=== PATIENT | female | born 1955 | race Caucasian/White ===

== ENCOUNTER → 2016-09-27 | Outpatient (CLI) | payer OTHER ==
[~2016-09-27] VITALS: Ht 165.1 cm; Wt 91.6 kg
[~2016-09-27] MED LIST: ALEVE220 MG PO; BYETTA PEN 51 PENIN1 SC; CARVEDILOL6.25 MG PO; CRESTOR10 MG PO; FENOFIBRATE160 MG PO; METFORMIN HCL500 MG PO; VOLTAREN100 GM TP
--- NOTE | ~2016-09-27 | HPC ---
[facility] [place] [address] PAIN MANAGEMENT CONSULTATION Name: NIRAJ BELL Room #: REG [facility].#: [id number] Admission: 09/27/16 Attend Phys: Dario Banks DO Discharge: Date of : 56 Report #: [id number] THIS REPORT FOR: //name// CC: Christian Banks HISTORY OF PRESENT ILLNESS: Dr. Mendoza. HISTORY OF PRESENT ILLNESS: The patient is a 61-year-old female. She had prior been seen back in 2008. She was returned to the pain clinic for evaluation of pain, low back, right hip and leg. She notes pain began in November without antecedent trauma and overuse. Still some weakness with right lower extremity. She has also weakness with right hip flexion, has no paresthesia, no bowel or bladder continence changes, no saddle anesthesia, rates pain anywhere from 5-7 on a 0-10 visual analog scale. Describes continuous, steady, constant, shooting, aching, gnawing pain, it seems to be exacerbated with sitting, walking or even lying on her side. She has tried Voltaren gel with some efficacy. She prior had epidural injections back in 2008 with efficacy. REVIEW OF SYSTEMS: Complete review of systems attached to chart was gone with the patient. She is . She does not smoke or drink alcohol to excess. History of diabetes, treated with metformin and Byetta, generally well controlled with hemoglobin A1c running in the 5.5 range. Hypertension, treated with Coreg. Dyslipidemia for which she takes a "statin". She has had a hysterectomy in 1991, bladder sling surgery in 2011. She has been retired for 3 years. Pain impact score averages about 6.2 for all indices queried. PHYSICAL EXAMINATION: GENERAL: Reveals a 5 feet 5 inches, 190 pounds female, BMI is 33.6 kilograms per meter squared. Blood pressure 150/89, pulse 90s, respirations are 18. NEUROLOGIC: Cranial 2-12 are grossly intact. HEENT: Pupils equal, reactive to light and accommodation. Extraocular muscles are intact. NECK: Cervical range of motion is full. Thyroid is unremarkable. Upper extremity strength is preserved. HEART: Regular rhythmical without murmur. She does have slight rhonchi bilaterally. She know she is getting over what sounds like a viral. EXTREMITIES: Rises from chair using armrest. Has a mildly endomorphic build. Detectable antalgic gait favoring the right leg, though she is able to walk on her toes and heels, right hip flexion strength is diminished about 3-4/5 versus 4/5 to all other objective muscle testing in the lower extremities, grossly positive straight leg raise at 30 degrees on the right. Patellar and Achilles reflexes are preserved. Tender over the SI bilaterally with positive Yoko test on the right. SKIN: Integument is intact. [address] [address] PAIN MANAGEMENT CONSULTATION Name: NIRAJ BELL Room #: REG [facility] Nicole#: [id number] Admission: 09/27/16 Attend Phys: Dario Banks DO Discharge: Date of : 56 Report #: [id number] DIAGNOSTIC STUDIES: There are no recent diagnostic studies available for evaluation at this time. ASSESSMENT: Symptomatic lumbar radiculopathy by clinical exam, component of SI joint dysfunction in a patient with non-insulin dependent diabetes. RECOMMENDATIONS: Epidural injection under fluoroscopy today at L4-L5. We will limit steroid to 60 mg, follow up one week for reevaluation and consideration for a right SI joint injection if indicated clinically. She and her are planning on traveling, will be doing a fair bit of walking, standing. If there is SI component, we may consider treating that next week. PROCEDURE: Lumbar epidural injection under fluoroscopy. PROCEDURE NOTE: After both written and informed consent to include risk of spinal cord damage, increased pain, weakness and dural puncture, the patient was taken to the fluoroscopy suite, placed in the prone position. After sterile prep and drape, a skin wheal with lidocaine was raised. A 22-gauge epidural Tuohy needle was inserted in the midline at L4-L5 with good loss to resistance. Negative aspiration for cerebrospinal fluid or blood was noted. Then 1 mL of Omnipaque under biplanar fluoroscopy showed good spread within the epidural space. This was followed with 80 mg of triamcinolone plus 1 mL of 1.5% preservative-free Xylocaine, 0.5 mL Xylocaine was then injected to flush the needle; it was removed. The patient was monitored for an appropriate period of time and discharged in good and stable condition. <ELECTRONICALLY SIGNED> By: Dario Banks DO 09/28/16 1138 [id number] Dario Banks DO /nt
[2016-09-27 10:54] VITALS: BP 150/89
== END | disposition home or self-care (01) ==
LOC: PAIN 06:57
DX: M54.16 Radiculopathy, lumbar region (principal); M53.3 Sacrococcygeal disorders, not elsewhere classified; E11.9 Type 2 diabetes mellitus without complications; I10 Essential (primary) hypertension; Z90.710 Acquired absence of both cervix and uterus; Z98.890 Other specified postprocedural states

== ENCOUNTER → 2016-10-04 | Outpatient (CLI) | payer OTHER ==
[~2016-10-04] VITALS: Ht 165.1 cm; Wt 86.3 kg
--- NOTE | ~2016-10-04 | OD ---
[facility] [place] [address] DELIVERY NOTE Name: BELLNIRAJ M Room #: REG Donnell Gra[facility].#: [id number] Admission: 10/04/16 Attend Phys: Dario Banks DO Discharge: Date of : 56 Report #: [id number] THIS REPORT FOR: //name// CC: Christian Banks INDICATIONS: The patient is a 61-year-old female. She was seen in consultation 09/27/2016 with diagnosis of symptomatic lumbar radiculopathy with a component of right SI joint dysfunction. She was given a lumbar epidural injection at initial visit, scheduled for a followup in 1 week for consideration for right SI joint injection. She returns to the pain clinic today noting that the epidural injection afforded about 80% relief, still has pain in the right SI with a positive Yoko test on this side. ASSESSMENT: Symptomatic sacroiliac joint dysfunction, lumbar radiculopathy by history. 80% overall improvement following the epidural injection, but significant ongoing right sacroiliac mediated pain. RECOMMENDATIONS: 1. Right SI joint injection under fluoroscopy today. 2. Continue core therapy exercise. 3. Continue naproxen sodium OTC p.r.n. 4. Follow up in 3 weeks for reevaluation. We will seek authorization for repeat epidural injection for radicular symptoms if still present. She does have a mildly positive straight leg raise on the right. No radicular symptoms or again about 80% overall improved. PROCEDURE: Right SI joint injection under fluoroscopy. DESCRIPTION OF PROCEDURE: After written informed consent was obtained, the patient was taken to the fluoroscopy suite and placed in prone position. After sterile prep and drape, a skin wheal was raised. A 22-gauge stylet needle was placed in the inferior aspect of the right SI joint. Negative aspiration was accomplished. Then, 20 mg of triamcinolone plus 3 mL of 0.5% preservative-free bupivacaine was injected into and around the joint. Needle was removed. Area was cleansed, Band-Aids applied. The patient monitored for an appropriate period of time, discharged in good and stable condition, noting about 50% improvement of baseline pain. By: [id number] Dario Banks DO /nt
[2016-10-04 11:03] VITALS: BP 125/75
== END | disposition home or self-care (01) ==
LOC: PAIN 06:59
DX: M53.3 Sacrococcygeal disorders, not elsewhere classified (principal); M54.16 Radiculopathy, lumbar region

== ENCOUNTER → 2016-10-25 | Outpatient (CLI) | payer OTHER ==
[~2016-10-25] VITALS: Ht 165.1 cm; Wt 87.5 kg
--- NOTE | ~2016-10-25 | HPC ---
[facility] [place] [address] PAIN MANAGEMENT CONSULTATION Name: BELLNIRAJ M Room #: REG [facility].#: [id number] Admission: 10/25/16 Attend Phys: Dario Banks DO Discharge: Date of : 56 Report #: [id number] THIS REPORT FOR: //name// CC: Abdiaziz Banks DATE OF SERVICE: 10/25/2016 The patient is a 61-year-old female, prior seen in the pain clinic 10/04/2016. She had 80% relief with an initial lumbar epidural injection. She had some right-sided pain. We did a right SI joint injection at last visit. Returns to pain clinic today noting that the SI joint injection afforded good relief. She has done well from a functional standpoint. She and her traveled to [place] on a cruise through the [facility]. On returning, she notes pain is becoming problematic again low back, right leg, primarily below the knee. PHYSICAL EXAMINATION: Shows cranial nerves 2-12 are grossly intact. Speech is fluent 33-year-old female with BMI of 32.1 kilograms per meter squared. Vital signs stable as noted in the EMR. Rises from chair using armrest. Modestly antalgic gait. She does have demonstrable loss of strength in the right leg to hip flexion, lower extremity extension and plantar flexion somewhat belying her tandem gait. Positive straight leg raise on the right. ASSESSMENT: Symptomatic lumbar radiculopathy. RECOMMENDATIONS: 1. Repeat epidural injection under fluoroscopy today at L4-L5. 2. Follow up in 3 weeks for reevaluation. If this does not afford adequate relief, we will need an updated MRI and we will refer to surgery. ASSESSMENT: Symptomatic lumbar radiculopathy. PROCEDURE: Lumbar epidural injection under fluoroscopy. PROCEDURE NOTE: After both written and informed consent to include risk of spinal cord damage, increased pain, weakness and dural puncture, the patient was taken to the fluoroscopy suite, placed in the prone position. After sterile prep and drape, a skin wheal with lidocaine was raised. A 22-gauge epidural Tuohy needle was inserted in the midline at L4-L5 with good loss to resistance. Negative aspiration for cerebrospinal fluid or blood was noted. Then 1 mL of Omnipaque under biplanar fluoroscopy showed good spread within the epidural space. This was followed with 80 mg of triamcinolone plus 1 mL of 1.5% preservative-free Xylocaine, 0.5 mL Xylocaine was then injected to flush the [facility] [address] [place] [address] PAIN MANAGEMENT CONSULTATION Name: NIRAJ BELL Room #: REG [facility]#: [id number] Admission: 10/25/16 Attend Phys: Dario Banks DO Discharge: Date of : 57 Report #: [id number] needle; it was removed. The patient was monitored for an appropriate period of time and discharged in good and stable condition. <ELECTRONICALLY SIGNED> By: Dario Banks DO 10/26/16 0925 1218 11 Dario Banks DO /nt
[2016-10-25 10:09] VITALS: BP 141/62
== END | disposition home or self-care (01) ==
LOC: PAIN 07:55
DX: M54.16 Radiculopathy, lumbar region (principal); Z98.890 Other specified postprocedural states

== ENCOUNTER → 2016-11-23 | Outpatient (CLI) | payer OTHER ==
[~2016-11-23] VITALS: Ht 165.1 cm; Wt 85.6 kg
[~2016-11-23] MED LIST changes: +MOBIC15 MG PO; +VICTOZA0.6 MG/0.1 SUBQ
--- NOTE | ~2016-11-23 | HPC ---
[facility] [place] [address] PAIN MANAGEMENT CONSULTATION Name: NIRAJ BELL Room #: REG [facility]#: [id number] Admission: 11/23/16 Attend Phys: Marilyn Jason MD Discharge: Date of : 56 Report #: [id number] THIS REPORT FOR: //name// CC: Marilyn Jimenez DATE OF SERVICE: 11/23/2016 FOLLOWUP COMPLAINT: Pain in the low back and down into the leg/buttocks. FOLLOWUP HISTORY: The patient is a 61-year-old female who has been seen in the pain clinic because of lumbar radiculopathy. She has undergone epidural steroid injections for pain radiating down into the L4-L5 distribution. She noticed that that has improved. At this juncture, she is having pain and discomfort, which radiates down into the low back area involving the right buttocks. She has noted over the last 3-4 days that the pain has increased. This happened after the patient slipped and fell on to her right hip. She has had difficulty ambulating because of this. The pain is quite problematic and makes sleeping and rest difficult. She continues to take nonsteroidal anti-inflammatory, naproxen. She is not sure if this is providing a significant amount benefit at this juncture. PHYSICAL EXAMINATION: Blood pressure 125/75, pulse 82, respiratory rate 16, room air saturation 97. Height 5 feet 5 inches, weight 86 kg, BMI is 31. The patient moves very slowly from chair to a standing position. She walks with a slight hop involving her right leg and in a very antalgic gait. She complains of pain and discomfort radiating down the lower portion of her back and into the buttocks area. This is different than the pain she experienced with the lumbar radiculopathy. She feels that she is unable to engage in activities of daily living. She is unable to walk or do routine daily activities. Palpation in the right posterior superior iliac spine area near the latissimus dorsi insertion on the low back area reproduces pain and discomfort, which she has been experiencing. IMPRESSION: 1. Myofascial pain, status post fall on to the right hip about 3-4 days ago. 2. Right sacroiliac joint injection under fluoroscopy in the past. 3. Improvement in lumbar radicular pain. RECOMMENDATIONS: We discussed treatment options with the patient. Risks and benefits of a trigger point injection was discussed. Possible complications which could include infection, increased muscle soreness, improvement in pain, worsening of pain were explained and the patient elects to proceed. The patient will try Mobic 15 mg 1 p.o. q. day and note its efficacy and hold use of [address] [address] PAIN MANAGEMENT CONSULTATION Name: NIRAJ BELL [id number] Admission: 11/23/16 Attend Phys: Marilyn Jason MD Discharge: Date of : 56 Report #: [id number] at this juncture. PROCEDURE NOTE: The patient was placed in the sitting position. Her back was sterilely prepped with a alcohol/chlorhexidine solution. A 25-gauge needle was then advanced into the area of discomfort. A total of 40 mg triamcinolone and 10 mL of 0.25% bupivacaine was injected. The patient's pain decreased to 0 at the time of discharge. She will follow up in the future as needed with Dr. Banks. We would like to thank you for letting us participate in her care. We hope she continues to improve. By: [id number] Marilyn Jason MD /nt
[2016-11-23 10:00] VITALS: BP 134/80
== END ==
LOC: PAIN 09:01
DX: M79.1 Myalgia (principal); M54.16 Radiculopathy, lumbar region; I10 Essential (primary) hypertension; E11.9 Type 2 diabetes mellitus without complications

== ENCOUNTER → 2017-01-21 | Outpatient (CLI) | payer OTHER ==
[~2017-01-21] VITALS: Ht 165.1 cm; Wt 84.8 kg
--- NOTE | ~2017-01-21 | HPC ---
[facility] [place] [address] PAIN MANAGEMENT CONSULTATION Name: BELLNIRAJ M Room #: REG [facility].#: [id number] Admission: 01/21/17 Attend Phys: Dairo Banks DO Discharge: Date of : 56 Report #: [id number] THIS REPORT FOR: //name// CC: Abdiaziz Banks HISTORY OF PRESENT ILLNESS: The patient is a 61-year-old female, prior seen in the pain clinic for symptomatic lumbar radiculopathy, she has classic right L4 radicular pain. She had an initial injection lumbar TARYN on 09/27/2016 with 80% relief from initial injection, initially 100% for several days, but pain gradually begun to recur. She was seen in followup on 10/04/2016 with some right SI mediated pain predominating. Proceeded with a second LESI on at L4-L5 on 10/26/2015. The patient returned on 11/23/2016 noting 50% relief following that injection. She was doing well until she slipped and fell 3 days prior to presentation. She returns to the pain clinic today noting pain remains problematic, right low back radiating down to the knee in an L4 pattern. Unfortunately, there are no diagnostic studies available, I ordered an MRI of the lumbar spine at last visit, but her insurance declined this. She has ongoing lumbar radicular pain, right L4 pattern, low back, right buttock, lateral thigh into the anterior foot. Pain is exacerbated with standing, walking and bending. PHYSICAL EXAMINATION: Shows positive straight leg raise on the right. She does have some diffuse tenderness across the low back. DIAGNOSTIC STUDIES: There are no diagnostic studies available. ASSESSMENT: 1. Symptomatic lumbar radiculopathy. 2. History of some myofascial pain and right sacroiliac mediated pain. RECOMMENDATIONS: 1. X-ray of the lumbar spine today. 2. Lumbar epidural injection under fluoroscopy today. 3. Follow up in 3 weeks for reevaluation. If pain persist despite interventional therapy today, we will reviewed diagnostic studies and consider MRI and referral to Neurosurgery. PROCEDURE PERFORMED: Lumbar epidural injection under fluoroscopy. PROCEDURE NOTE: After both written and informed consent to include risk of spinal cord damage, increased pain, weakness and dural puncture, the patient was taken to the fluoroscopy suite, placed in the prone position. After sterile prep and drape, a skin wheal with lidocaine was raised. A 22-gauge epidural Tuohy needle was inserted in the midline at L4-L5 with good loss to resistance. Negative aspiration for cerebrospinal fluid or blood was noted. Then 1 mL of Omnipaque under biplanar fluoroscopy showed good spread within the epidural [address] [address] PAIN MANAGEMENT CONSULTATION Name: NIRAJ BELL Room #: REG [facility] Nicole#: [id number] Admission: 01/21/17 Attend Phys: Dario Banks DO Discharge: Date of : 56 Report #: [id number] space. This was followed with 60 mg of triamcinolone plus 1 mL of 1.5% preservative-free Xylocaine, 0.5 mL Xylocaine was then injected to flush the needle; it was removed. The patient was monitored for an appropriate period of time and discharged in good and stable condition. By: [id number] Dario Banks DO /nt
[2017-01-21 15:12] VITALS: BP 129/64
== END ==
LOC: PAIN 07:14
DX: M54.16 Radiculopathy, lumbar region (principal); I10 Essential (primary) hypertension; F10.10 Alcohol abuse, uncomplicated; Z88.1 Allergy status to other antibiotic agents; Z79.899 Other long term (current) drug therapy

== ENCOUNTER → 2017-02-11 | Outpatient (CLI) | payer OTHER ==
[~2017-02-11] VITALS: Ht 165.1 cm; Wt 84.1 kg
--- NOTE | ~2017-02-11 | HPC ---
[facility] [place] [address] PAIN MANAGEMENT CONSULTATION Name: BELLNIRAJ M Room #: REG [facility].#: [id number] Admission: 02/11/17 Attend Phys: Dario Banks DO Discharge: Date of : 56 Report #: [id number] THIS REPORT FOR: //name// CC: Abdiaziz Banks HISTORY OF PRESENT ILLNESS: The patient is a 61-year-old female, prior seen in the pain clinic 01/21/2017 and given epidural injection at L4-L5. The patient has excellent improvement of the radicular pain; however, she is still some right point SI mediated pain. In review, the patient was initially seen 09/27/2016, given epidural injection again and had some improvement of radicular pain. She was seen in followup, 10/04/2016, had similar right SI pain and was given SI joint injection at that time. Lumbar epidural injection, 10/26/2015, with again good improvement. She was seen by Dr. Brandon Jason in October for some trigger point injections. I saw her in followup at that last visit, 01/21/2017. She returns to the pain clinic, again is noting pain is perhaps 2 on a VAS, exacerbated with walking and climbing stairs. Chronic dull aching sensation. Notes significant relief following the last epidural injection, specifically 85% and that relief is ongoing. She uses Aleve p.r.n. presently. PHYSICAL EXAMINATION: GENERAL: Shows a 61-year-old female, BMI is 30.9 kilograms per meter squared. VITAL SIGNS: Stable as noted in the EMR. MUSCULOSKELETAL: Rises from chair using armrest. Gait is tandem. Lower extremity strength is preserved. Still has tenderness over the right SI joint. Yoko test is only nominally positive. Gaenslen's is nominally positive as well. ASSESSMENT: Sacroiliac joint dysfunction by clinical exam. I did review x-rays of the lumbar spine, accomplished 01/21/2017. Again, it shows some mild increased lumbar lordosis, some chronic wedging at T11 and slight upper lumbar scoliosis. ASSESSMENT: Lumbar radiculopathy, right sacroiliac joint dysfunction and lumbar spondylosis; all generally well controlled at present. RECOMMENDATIONS: Strongly recommend core therapy, referred to PT for same. I will be happy to see the patient on as-needed basis for consideration for SI joint injection if indicated clinically. Otherwise, have the [place] [address] PAIN MANAGEMENT CONSULTATION Name: NIRAJ EBLL Edgar Room #: REG CL Nicole#: [id number] Admission: 02/11/17 Attend Phys: Dario Banks DO Discharge: Date of : 56 Report #: [id number] Thank you for allowing me to participate in this patient's care. By: [id number] Dario Banks DO /ashley
[2017-02-11 10:34] VITALS: BP 130/87
== END | disposition home or self-care (01) ==
LOC: PAIN 07:13
DX: M54.16 Radiculopathy, lumbar region (principal); G89.29 Other chronic pain; M47.896 Other spondylosis, lumbar region; M41.86 Other forms of scoliosis, lumbar region; Z98.890 Other specified postprocedural states; Z88.8 Allergy status to other drugs, medicaments and biological substances; Z79.899 Other long term (current) drug therapy

== ENCOUNTER → 2017-04-25 | Outpatient (CLI) | payer OTHER ==
[~2017-04-25] VITALS: Ht 165.1 cm; Wt 88.0 kg
[~2017-04-25] MED LIST changes: +TRAMADOL 50 MG50 MG PO
--- NOTE | ~2017-04-25 | HPC ---
[facility] [place] [address] PAIN MANAGEMENT CONSULTATION Name: RAYNIRAJ Edgar Room #: REG [facility].#: [id number] Admission: 04/25/17 Attend Phys: Dario Banks DO Discharge: Date of : 56 Report #: [id number] THIS REPORT FOR: //name// CC: Abdiaziz Banks HISTORY OF PRESENT ILLNESS: The patient is very pleasant 62-year-old female, prior seen in the pain clinic on 02/11/2017. The patient was referred to physical therapy for sacroiliac-mediated pain. She prior had a right SI joint injection on 10/04/2016 with near 100% relief for 2 weeks. Pain has begun to recur. She has had 2 epidural injections for radicular component of pain, which is actually fairly quiescent. She returns to pain clinic today with ongoing right low back pain radiating into the posterior buttock, some to the lateral thigh, but not below the knee. She notes the pain is exacerbated with walking, stairs, leaning forward or laying on her right side. Pain is not radiating into the leg. PHYSICAL EXAMINATION: Shows 62-year-old female, BMI is 30.3 kilograms per meter squared. Vital signs are stable as noted on the EMR. Lower extremity strength is symmetric. Straight leg raise is negative. GERALD test is modestly positive on the right, negative on the left. Gaenslen test is modestly positive as well. ASSESSMENT: Symptomatic sacroiliac joint mediated pain (right) by clinical exam and history. We reviewed the patient's diagnostic studies. X-rays of the lumbar spine, which show negative for fracture. Physical exam and history compatible with SI-mediated pain. RECOMMENDATION: We will seek authorization for right SI joint injection without steroids as the diagnostic test. If this affords again good transient relief, we will refer for consideration for a percutaneous SI fusion. Discharged in good and stable condition. We will seek authorization for right SI joint injection under fluoroscopy without steroid. <ELECTRONICALLY SIGNED> By: Dario Banks DO 04/26/17 0654 1527 30 Dario Banks DO /nt
[2017-04-25 13:29] VITALS: BP 127/79
== END ==
LOC: PAIN 08:36
DX: M53.3 Sacrococcygeal disorders, not elsewhere classified (principal)

== ENCOUNTER → 2017-05-09 | Outpatient (CLI) | payer OTHER ==
[~2017-05-09] VITALS: Ht 165.1 cm; Wt 87.6 kg
--- NOTE | ~2017-05-09 | HPC ---
[facility] [place] [address] PAIN MANAGEMENT CONSULTATION Name: BELLNIRAJ M Room #: [facility].#: [id number] Admission: 05/09/17 Attend Phys: Dario Banks DO Discharge: Date of : 57 Report #: [id number] THIS REPORT FOR: //name// CC: Abdiaziz Banks The patient is a very pleasant 62-year-old female, prior seen in the pain clinic on 04/25/2017. Ongoing axial back pain and right SI mediated pain. We sought authorization for right SI joint injection under fluoroscopy without benefit of steroid. She prior had near 100% relief following prior right SI joint injection on 10/04/2016. Pain had begun to recur. Today, we elected to proceed with right SI joint injection under fluoroscopy without steroid in anticipation of referring the patient for percutaneous SI fusion. We did contact Dr. Brandon Benjamin's office, they requested that we get an MRI of the lumbar spine prior to her appointment. The patient notes pain is 6 on a VAS, it is in the right SI area. Has positive GERALD test and positive Gaenslen test. ASSESSMENT: Right sacroiliac mediated pain. PROCEDURE: Right SI joint injection under fluoroscopy. PROCEDURE NOTE: After written informed consent was obtained, the patient was taken to fluoroscopy suite, placed in prone position. After sterile prep and drape, skin was raised. A 20-gauge stylet needle was placed to contact the inferior aspect of the right SI joint. Negative aspiration was accomplished. 1 mL of Omnipaque was injected, which highlighted the joint space, this was followed with 2 mL of 0.5% preservative-free bupivacaine. No steroids were injected. Needle was removed, the area was cleansed, Band-Aids applied. The patient was monitored for an appropriate period of time, she noted significant improvement of baseline pain, noting pain had been 6 on a VAS on admission, was 1 on a VAS on discharge. We asked the patient to monitor pain score hourly for the next 3 hours and call back to the nurses allowing to document those results. MRI was also ordered of the lumbar spine. The patient has had ongoing axial back pain, component of radicular pain in the past, has failed conservative therapy including physical therapy, prior epidural injection for radicular pain (in September and October). Discharged in good and stable condition. ADDENDUM The patient called back to the RN line the pain clinic reporting her pain score is at 1, 2 and 3 hours postprocedure. At 11:30 one hour postprocedure, [place] [address] PAIN MANAGEMENT CONSULTATION Name: NIRAJ BELL Room #: REG [facility] Nicole#: [id number] Admission: 05/09/17 Attend Phys: Dario Banks DO Discharge: Date of : 57 Report #: [id number] had the pain score 0-1; at 12:30, one hour postprocedure, patient had pain score 0; at 1330, three hours status post procedure, the patient had "slight pain" and then a little after 1400 hours, the patient had return of her baseline pain. This looks to be positive diagnostic tests indicating pain is primarily originating in the right SI joint. We will refer to Dr. Brandon Benjamin for consideration for percutaneous fusion of the right SI joint. <ELECTRONICALLY SIGNED> By: Dario Banks DO 05/10/17 0731 [id number] Dario Banks DO /nt
[2017-05-09 09:30] VITALS: BP 112/69
== END | disposition home or self-care (01) ==
LOC: PAIN 06:23
DX: M53.3 Sacrococcygeal disorders, not elsewhere classified (principal); M54.10 Radiculopathy, site unspecified

== ENCOUNTER → 2017-05-21 | Outpatient (CLI) | payer OTHER | LOC: MRI 05-15 14:40 | DX: M54.16 Radiculopathy, lumbar region (principal); M47.894 Other spondylosis, thoracic region; M65.88 Other synovitis and tenosynovitis, other site; M25.78 Osteophyte, vertebrae ==